=== PATIENT | male | born 1995 | race Caucasian/White ===

== ENCOUNTER 2017-05-13 23:14 | Emergency (ER) | payer OTHER ==
[~2017-05-13] VITALS: Ht 188 cm; Wt 97.5 kg
--- NOTE | 2017-05-13 23:17 | ER Report ---
History and Physical Time Seen By MD: 23:14 HPI/ROS CHIEF COMPLAINT: hockey injuries HISTORY OF PRESENT ILLNESS: This is a 22 year old male. He had a hockey injury tonight. Slid into the boards, head first. Has injury to left wrist/hand area, left femur proximal area, left ankle. He has some right shoulder pain as well. Denies head injury, neck pain or back pain. No loss of consciousness. No chest pain or trouble breathing. No abdominal pain. Pain control from EMS with some Fentanyl. No loss of control of bowel or bladder function. He can move his extremities, but causes pain in left extremities. No lacerations. No nausea or vomiting. Allergies: Coded Allergies: No Known Drug Allergies (Unverified , 05/13/17) Home Meds No Active Prescriptions or Reported Meds Reviewed Nurses Notes: Yes Constitutional Vital Sign - Last 24 Hours 05/13/17 05/13/17 05/13/17 05/13/17 23:14 23:15 23:18 23:30 Temp 97.7 Pulse 81 Resp 19 B/P (MAP) 134/74 (94) 134/74 145/84 (104) Pulse Ox 98 O2 Delivery Room Air O2 Flow Rate 2.0 05/13/17 05/14/17 05/14/17 05/14/17 23:44 00:00 00:19 00:30 Pulse 74 72 B/P (MAP) 127/84 (98) 149/89 (109) Pulse Ox 98 97 05/14/17 05/14/17 05/14/17 05/14/17 00:35 01:02 01:05 01:10 Pulse 71 76 79 B/P (MAP) 141/75 (97) Pulse Ox 97 96 96 05/14/17 05/14/17 05/14/17 01:30 01:40 02:00 Pulse 77 B/P (MAP) 137/71 (93) 133/65 (87) Pulse Ox 91 Physical Exam General Appearance: The patient is alert, has no immediate need for airway protection and no current signs of toxicity. Eyes: Pupils equal and round, no injection. ENT: No dental or oral trauma. Tympanic membranes normal bilaterally Respiratory: Chest is non tender to palpation. Breath sounds are equal. Cardiac: Regular rate and rhythm. Gastrointestinal: Soft and non tender, there is no evidence of external or internal trauma by exam. Neurological: GCS 15. Alert and oriented x4. No focal deficits. Skin: No laceration or abrasions. Musculoskeletal: Head: Atraumatic without scalp tenderness. Neck: A cervical collar was placed due to possibility of distracting injury. The cervical spine is non-tender. Back: There is no thoracic or lumbar spine or paraspinal tenderness. Pelvis: Non-tender, no laxity with pelvic pressure. Extremities: Pain with palpation over left thigh, left ankle, left wrist /hand area where there is a deformity. Right shoulder was painful with motion, but no pain with palpation. No pain with palpation in right extremities otherwise. DIFFERENTIAL DIAGNOSIS: After history and physical exam differential diagnosis was considered for trauma in a hockey accident; cervical spine protected due to possible distracting injury, imaging ordered for the femur, ankle, wrist/hand on left, and the shoulder on the right. Chest and pelvis ordered. C-spine CT. Medical Decision Making EKG/Imaging Imaging CHEST SINGLE AP HISTORY: Hockey injury COMPARISON: None FINDINGS: Cardiomediastinal contours: Normal Lungs and pleura: Normal Bones/soft tissues: Normal Other findings: None significant IMPRESSION: 1. Normal chest Report Dictated By: Usama Orellana MD at 05/14/2017 12:43 AM PELVIS HISTORY: Hockey injury. Left leg and wrist. Right shoulder pain. COMPARISON: Concurrent left femur x-rays. TECHNIQUE: 2 AP views of the pelvis. FINDINGS: There is no fracture or dislocation. The sacral joints are patent without widening. There is no pubic diastases. IMPRESSION: 1. No acute osseous abnormality of the pelvis. Report Dictated By: Ana Collins at 05/14/2017 12:43 AM FEMUR LEFT HISTORY: Hockey injury COMPARISON: None FINDINGS: No acute fracture or dislocation. No destructive bony lesions. No periostitis. IMPRESSION: 1. No acute osseous abnormality. Report Dictated By: Usama Orellana MD at 05/14/2017 12:48 AM ANKLE 3 VIEW MIN LEFT HISTORY: Hockey injury COMPARISON: None FINDINGS: No evidence of acute fracture or dislocation. Talar dome is smooth in contour. Bohler angle is well maintained. Base of the 5th metatarsal is intact. IMPRESSION: 1. No acute osseous abnormality. Report Dictated By: Usama Orellana MD at 05/14/2017 12:46 AM SHOULDER MIN 2 VIEWS RIGHT HISTORY: Hockey injury COMPARISON: None FINDINGS: Right shoulder: There is no evidence of acute fracture or dislocation. Glenohumeral joint is normal. The acromioclavicular joint is normal in appearance. IMPRESSION: 1. No acute osseous abnormality. Report Dictated By: Usama Orellana MD at 05/14/2017 12:49 AM WRIST LEFT MIN 3 VIEW HISTORY: Hockey injury COMPARISON: None FINDINGS: Nondisplaced distal radial metaphyseal fracture. Distal ulna appears intact. Carpal rows are well aligned. Scaphoid bone is intact. Scapholunate and lunotriquetral intervals are normal. IMPRESSION: 1. Nondisplaced distal radial metaphyseal fracture. Report Dictated By: Usama Orellana MD at 05/14/2017 12:50 AM HAND COMPLETE LEFT HISTORY: Hockey injury COMPARISON: None FINDINGS: Nondisplaced distal radial metaphyseal fracture. On lateral image there is probably a carpal boss rather than CMC joint fracture IMPRESSION: 1. Nondisplaced distal radial metaphyseal fracture. 2. On lateral image probable carpal boss rather than fracture of the carpal- metacarpal joints. No discrete fracture on AP image. Recommend clinical correlation for pain at this site and follow-up images as indicated. Report Dictated By: Usama Orellana MD at 05/14/2017 12:51 AM C-SPINE W/O CONTRAST HISTORY: Hockey injury. COMPARISON: None. TECHNIQUE: Axial images were obtained from the skull base through the upper thoracic spine. Coronal and sagittal reformatted images were obtained from the axial source data. One of the following dose optimization techniques was utilized in the performance of this exam: Automated exposure control; adjustment of the mA and/ or kV according to the patient's size; or use of an iterative reconstruction technique. Specific details can be referenced in the facility's radiology CT exam operational policy. CONTRAST: None. FINDINGS: Musculoskeletal/vertebra: No acute osseous abnormality. There is straightening of the normal cervical lordosis. Vertebral body heights are maintained. No listhesis. The prevertebral soft tissues are within normal limits. The spinal canal is normal in caliber. Visualized upper chest: Normal. Soft tissues: Thyroid is diffusely heterogeneous. No discrete nodule. Visualized orbits, brain, paranasal sinuses, and mastoids: Normal. IMPRESSION: 1. No acute osseous abnormality of the cervical spine. Report Dictated By: Ana Collins at 05/14/2017 1:11 AM ED Course/Re-evaluation Clinical Indication for ER IV: Hydration, IV Access ED Course Patient arrived and hockey gear was removed to expose the patient. Cervical collar applied because of concern for distracting injury. Dilaudid 1mg IV given to help with pain. Injuries as noted and imaging ordered. Imaging was negative other than the wrist and questionable hand fracture. Half- cast applied. Another 1mg of Dilaudid was given during imaging form pain. After splint applied, another 0.5mg IV Dilaudid given. Discussed findings with the patient and he will call orthopedic surgery later today when they open to schedule an appointment with them. Lortab and Ibuprofen recommended for pain control. Splint care discussed and sling provided. Procedure: Sugar-tong half-cast placement. A half-cast/splint as noted above was applied. After application of the half- cast, I returned and re-examined the patient. The half-cast was adequately immobilizing the joint and distally the patient's circulation and sensation was intact. This was applied by myself. Decision to Disposition Date: May 14, 2017 Decision to Disposition Time: 01:34 Depart Departure Latest Vital Signs Vital Signs Date Time Temp Pulse Resp B/P (MAP) Pulse Ox O2 Delivery O2 Flow Rate FiO2 05/14/17 02:00 133/65 (87) 05/14/17 01:40 77 91 05/13/17 23:18 97.7 19 Room Air 05/13/17 23:14 2.0 Impression: Primary Impression: Distal radius fracture, left Additional Impressions: Contusion of leg, left, multiple sites Right shoulder strain Condition: Improved Disposition: HOME OR SELF-CARE New Scripts No Active Prescriptions or Reported Meds Patient Instructions: Contusion in Adults (ED), Wrist Fracture in Adults (ED) Additional Instructions: Ibuprofen 200mg over the counter tablets, take 4 tablets three times a day with food. Lortab 5/325, one every 4 hours as needed for pain. Zofran 4mg, one every 6 hours as needed for nausea. Apply ice 20 minutes every 1-2 hours while awake. Keep the splint in place until you see orthopedic surgery. Call orthopedic surgery later today when the office opens to schedule an appointment with them. Let them know you have a 'distal radius fracture' and another 'questionable area in the hand' Rest the injured area, keep it elevated while at rest. Problem Qualifiers Primary Impression: Distal radius fracture, left Encounter type: initial encounter Fracture type: closed Fracture morphology : other intra-articular Qualified Codes: S52.572A - Other intraarticular fracture of lower end of left radius, initial encounter for closed fracture Additional Impressions: Contusion of leg, left, multiple sites Encounter type: initial encounter Qualified Codes: S80.12XA - Contusion of left lower leg, initial encounter Right shoulder strain Encounter type: initial encounter Qualified Codes: S46.911A - Strain of unspecified muscle, fascia and tendon at shoulder and upper arm level, right arm , initial encounter PARVEZ JIMENEZ MD May 13, 2017 23:17
[2017-05-13] MEDS ORDERED: NS(*) 0.9% 1000 ML BAG 1,000 ML IV ONE (23:20)
[2017-05-13] MEDS ORDERED: ONDANSETRON 4 MG/2 ML VIAL IVP ONE (23:20)
[2017-05-13] MEDS ORDERED: HYDROmorphone(ER ONLY) 1 MG/ML IVP ONE (23:20)
[2017-05-14] MEDS ORDERED: HYDROmorphone(ER ONLY) 1 MG/ML IVP ONE ×2 (00:05→01:40)
[2017-05-14] MEDS ORDERED: EMS NS 0.9%(*) 1000 ML BAG 1,000 ML IV ONE (00:35)
--- NOTE | 2017-05-14 00:48 | RADIOLOGY IMAGING REPORT ---
FACILITY: [facility] [place] PATIENT NAME: Tanner Newton : 1995 MR: [id number] V: [id number] EXAM DATE: ORDERING PHYSICIAN: PARVEZ JIMENEZ TECHNOLOGIST: Location: [facility] [place] Patient: Tanner Newton : 1995 Visit/Account:[id number] Date of Sevice: 05/13/2017 PELVIS HISTORY: Hockey injury. Left leg and wrist. Right shoulder pain. COMPARISON: Concurrent left femur x-rays. TECHNIQUE: 2 AP views of the pelvis. FINDINGS: There is no fracture or dislocation. The sacral joints are patent without widening. There i s no pubic diastases. IMPRESSION: 1. No acute osseous abnormality of the pelvis. Report Dictated By: Ana Collins at 05/14/2017 12:43 AM Report E-Signed By: Ana Collins at 05/14/2017 12:45 AM WSN:[id number]
--- NOTE | 2017-05-14 00:48 | RADIOLOGY IMAGING REPORT ---
FACILITY: [facility] PATIENT NAME: Tanner Newton : 1995 MR: [id number] V: [id number] EXAM DATE: ORDERING PHYSICIAN: PARVEZ JIMENEZ TECHNOLOGIST: Location: [facility] Patient: Tanner Newton : 1995 Visit/Account:[id number] Date of Sevice: 05/13/2017 CHEST SINGLE AP HISTORY: Hockey injury COMPARISON: None FINDINGS: Cardiomediastinal contours: Normal Lungs and pleura: Normal Bones/soft tissues: Normal Other findings: None significant IMPRESSION: 1. Normal chest Report Dictated By: Usama Orellana MD at 05/14/2017 12:43 AM Report E-Signed By: Usama Orellana MD at 05/14/2017 12:43 AM WSN:[id number]
--- NOTE | 2017-05-14 00:52 | RADIOLOGY IMAGING REPORT ---
FACILITY: [facility] PATIENT NAME: Tanner Newton : 1995 MR: [id number] V: [id number] EXAM DATE: ORDERING PHYSICIAN: PARVEZ JIMENEZ TECHNOLOGIST: Location: [facility] [place] Patient: Tanner Newton : 1995 Visit/Account:[id number] Date of Sevice: 05/13/2017 ANKLE 3 VIEW MIN LEFT HISTORY: Hockey injury COMPARISON: None FINDINGS: No evidence of acute fracture or dislocation. Talar dome is smooth in contour. Bohler angle is well maintained. Base of the 5th metatarsal is intact. IMPRESSION: 1. No acute osseous abnormality. Report Dictated By: Usama Orellana MD at 05/14/2017 12:46 AM Report E-Signed By: Usama Orellana MD at 05/14/2017 12:48 AM WSN:[id number]
--- NOTE | 2017-05-14 00:53 | RADIOLOGY IMAGING REPORT ---
FACILITY: [facility] PATIENT NAME: Tanner Newton : 1995 MR: [id number] V: [id number] EXAM DATE: ORDERING PHYSICIAN: PARVEZ JIMENEZ TECHNOLOGIST: Location: [facility] Patient: Tanner Newton : 1995 Visit/Account:[id number] Date of Sevice: 05/13/2017 FEMUR LEFT HISTORY: Hockey injury COMPARISON: None FINDINGS: No acute fracture or dislocation. No destructive bony lesions. No periostitis. IMPRESSION: 1. No acute osseous abnormality. Report Dictated By: Usama Orellana MD at 05/14/2017 12:48 AM Report E-Signed By: Usama Orellana MD at 05/14/2017 12:49 AM WSN:[id number]
--- NOTE | 2017-05-14 00:53 | RADIOLOGY IMAGING REPORT ---
FACILITY: [facility] - [place] PATIENT NAME: Tanner Newton : 1995 MR: [id number] V: [id number] EXAM DATE: ORDERING PHYSICIAN: PARVEZ JIMENEZ TECHNOLOGIST: [place] [facility] [place] Patient: Tanner Newton : 1995 Visit/Account:[id number] Date of Sevice: 05/13/2017 SHOULDER MIN 2 VIEWS RIGHT HISTORY: Hockey injury COMPARISON: None FINDINGS: Right shoulder: There is no evidence of acute fracture or dislocation. Glenohumeral joint is normal. The acromioclavicular joint is normal in appearance. IMPRESSION: 1. No acute osseous abnormality. Report Dictated By: Usama Orellana MD at 05/14/2017 12:49 AM Report E-Signed By: Usama Orellana MD at 05/14/2017 12:50 AM WSN:[id number]
--- NOTE | 2017-05-14 00:54 | RADIOLOGY IMAGING REPORT ---
FACILITY: [facility] PATIENT NAME: Tanner Newton : 1995 MR: [id number] V: [id number] EXAM DATE: ORDERING PHYSICIAN: PARVEZ JIMENEZ TECHNOLOGIST: Location: [facility] [place] Patient: Tanner Newton : 1995 Visit/Account:[id number] Date of Sevice: 05/13/2017 WRIST LEFT MIN 3 VIEW HISTORY: Hockey injury COMPARISON: None FINDINGS: Nondisplaced distal radial metaphyseal fracture. Distal ulna appears intact. Carpal rows ar e well aligned. Scaphoid bone is intact. Scapholunate and lunotriquetral intervals are normal. IMPRESSION: 1. Nondisplaced distal radial metaphyseal fracture. Report Dictated By: Usama Orellana MD at 05/14/2017 12:50 AM Report E-Signed By: Usama Orellana MD at 05/14/2017 12:51 AM WSN:[id number]
--- NOTE | 2017-05-14 00:58 | RADIOLOGY IMAGING REPORT ---
[place] [facility] [place] Tanner Newton : 1995 MR: [id number] V: [id number] EXAM DATE: ORDERING PHYSICIAN: PARVEZ JIMENEZ TECHNOLOGIST: Location: [facility] [place] Patient: Tanner Newton : 1995 Visit/Account:[id number] Date of Sevice: 05/13/2017 HAND COMPLETE LEFT HISTORY: Hockey injury COMPARISON: None FINDINGS: Nondisplaced distal radial metaphyseal fracture. On lateral image there is probably a carpal boss rat her than CMC joint fracture IMPRESSION: 1. Nondisplaced distal radial metaphyseal fracture. 2. On lateral image probable carpal boss rather than fracture of the carpal-metacarpal joints. No dis crete fracture on AP image. Recommend clinical correlation for pain at this site and follow-up images as indicated. Report Dictated By: Usama Orellana MD at 05/14/2017 12:51 AM Report E-Signed By: Usama Orellana MD at 05/14/2017 12:55 AM WSN:[id number]
--- NOTE | 2017-05-14 01:20 | RADIOLOGY IMAGING REPORT ---
FACILITY: [facility] PATIENT NAME: Tanner Newton : 1995 MR: [id number] V: [id number] EXAM DATE: ORDERING PHYSICIAN: PARVEZ JIMENEZ TECHNOLOGIST: Location: [facility] Patient: Tanner Newton : 1995 Visit/Account:[id number] Date of Sevice: 05/13/2017 C-SPINE W/O CONTRAST HISTORY: Hockey injury. COMPARISON: None. TECHNIQUE: Axial images were obtained from the skull base through the upper thoracic spine. Coronal a nd sagittal reformatted images were obtained from the axial source data. One of the following dose optimization techniques was utilized in the performance of this exam: Autom ated exposure control; adjustment of the mA and/or kV according to the patient's size; or use of an i terative reconstruction technique. Specific details can be referenced in the facility's radiology CT exam operational policy. CONTRAST: None. FINDINGS: Musculoskeletal/vertebra: No acute osseous abnormality. There is straightening of the normal cervical lordosis. Vertebral body heights are maintained. No listhesis. The prevertebral soft tissues are wit hin normal limits. The spinal canal is normal in caliber. Visualized upper chest: Normal. Soft tissues: Thyroid is diffusely heterogeneous. No discrete nodule. Visualized orbits, brain, paranasal sinuses, and mastoids: Normal. IMPRESSION: 1. No acute osseous abnormality of the cervical spine. Report Dictated By: Ana Collins at 05/14/2017 1:11 AM Report E-Signed By: Ana Collins at 05/14/2017 1:16 AM WSN:[id number]
[2017-05-14] MEDS ORDERED: ONDANSETRON 4 MG ODT TABDP SL ONE (01:35)
[2017-05-14] MEDS ORDERED: ACET/HYDROC 5/325MG TH ER ONLY 2 TAB/BOTTLE PO ONE (01:35)
[2017-05-14] MEDS ORDERED: APAP/HYDROCODONE 325/5 TAB PO ONE (01:40)
[2017-05-14 02:00] VITALS: BP 133/65
== END 2017-05-14 02:30 | disposition home or self-care (01) ==
LOC: ER 23:18
DX: S52.572A Other intraarticular fracture of lower end of left radius, initial encounter for closed fracture (principal); S80.12XA Contusion of left lower leg, initial encounter; S46.911A Strain of unspecified muscle, fascia and tendon at shoulder and upper arm level, right arm, initial encounter; W22.09XA Striking against other stationary object, initial encounter; Y93.22 Activity, ice hockey; M79.652 Pain in left thigh; E07.89 Other specified disorders of thyroid
CPT/HCPCS: 29125; 71045; 72125; 72170; 73030; 73110; 73130; 73552; 73610; 96361; 96374; 96375; 96376; 99284; A4565; J1170; J2405; J7030; L0172; S0119

== ENCOUNTER → 2017-05-13 | Outpatient (CLI) | payer OTHER | LOC: AMB 22:47 | PROVIDERS: ATTEND Nurse Practitioner | DX: M25.552 Pain in left hip (principal); M25.511 Pain in right shoulder; M21.932 Unspecified acquired deformity of left forearm; Y93.22 Activity, ice hockey; Y92.838 Other recreation area as the place of occurrence of the external cause | CPT/HCPCS: A0425; A0427 ==